=== PATIENT | female | born 1940 ===

== ENCOUNTER 2017-11-26 01:54 | Inpatient (IN) | payer MEDICARE, MEDICAID ==
--- NOTE | 2017-11-26 03:18 | C.PDOC ---
pt brought in by her son for headache, decreased appetite and diffuse body aches. Has been treting her with OTC medication. Unable to obtain any history from the patient due to her dementia.Patient does not appear to be in acute distress (Danilo Jackson) History Per: Family History/Exam Limitations: clinical condition (dementia) Onset/Duration Of Symptoms: Days Current Symptoms Are (Timing): Still Present Severity: Moderate Pain Scale Rating Of: 4 Quality: Dull, Other (throbbing) Preceeding Symptoms: None Associated Symptoms: denies: Photophobia Recent travel outside of the [place]: No Additional History Per: Family <Danilo Jackson - Last Filed: 11/26/17 06:58> <Ani Bishop - Last Filed: 11/26/17 10:56> Time Seen by Provider: 11/26/17 03:18 Chief Complaint (Nursing): Headache Past Medical History Reviewed: Historical Data, Nursing Documentation, Vital Signs - Medical History PMH: Alzheimer's Disease Denies: Chronic Kidney Disease Family History: States: No Known Family Hx - Social History Hx Alcohol Use: No Hx Substance Use: No - Immunization History Hx Tetanus Toxoid Vaccination: No Hx Influenza Vaccination: No Hx Pneumococcal Vaccination: No <Danilo Jackson - Last Filed: 11/26/17 06:58> Vital Signs: Last Vital Signs Temp 97.8 F 11/26/17 07:49 Pulse 85 11/26/17 07:49 Resp 20 11/26/17 07:49 BP 137/70 11/26/17 07:49 Pulse Ox 99 11/26/17 07:49 Review Of Systems Review Of Systems: ROS cannot be obtained secondary to pt's inabilty to answer questions. <Danilo Jackson - Last Filed: 11/26/17 06:58> Physical Exam - Physical Exam Appears: Non-toxic, No Acute Distress Skin: Warm, Dry Head: Normacephalic Eye(s): bilateral: Normal Inspection Oral Mucosa: Moist Neck: Supple Chest: Symmetrical Cardiovascular: Rhythm Regular Respiratory: No Rales, Rhonchi (bases), No Wheezing Gastrointestinal/Abdominal: Soft, No Tenderness, No Distention Back: Normal Inspection Extremity: Normal ROM Extremity: Bilateral: Atraumatic Pulses: Left Dorsalis Pedis: Normal, Right Dorsalis Pedis: Normal Neurological/Psych: Other (aaox1) Gait: With Assistance <KiarraEileen gordonperla - Last Filed: 11/26/17 06:58> ED Course And Treatment - Laboratory Results Result Diagrams: 11/26/17 03:56 11/26/17 04:10 O2 Sat by Pulse Oximetry: 98 Pulse Ox Interpretation: Normal - CT Scan/US Head CT Other Rad Studies (CT/US): Interpreted By Me, Read By Radiologist CT/US Interpretation: EXAM: CT Head Without Intravenous Contrast. CLINICAL HISTORY: 77 years old, female; Pain; Headache; Additional info: R/O bleed. TECHNIQUE: Axial computed tomography images of the head/brain without intravenous contrast. All CT scans at. this facility use one or more dose reduction techniques, viz.: automated exposure control; ma/kV. adjustment per patient size (including targeted exams where dose is matched to indication; i.e. head);. or iterative reconstruction technique. Coronal and sagittal reformatted images were created and reviewed. COMPARISON: No relevant prior studies available. FINDINGS: Brain: Putu-ls-eegagajv atrophy. No intracranial hemorrhage. No mass. No edema. Ventricles: No hydrocephalus. Bones/joints: No acute fracture. Soft tissues: Unremarkable. Vasculature: Mild atherosclerotic disease of intracranial arteries. Sinuses: Moderate to extensive mucosal thickening/fluid of frontal, ethmoid, sphenoid, maxillary. sinuses. Mastoid air cells: No mastoid effusion. Orbits: Unremarkable as visualized. Sella: Enlargement of sella with CSF density. IMPRESSION: 1. No intracranial hemorrhage. 2. Sinus disease. 3. Incidental/non-acute findings are described above. <Danilo Jackson - Last Filed: 11/26/17 06:58> - Laboratory Results Result Diagrams: 11/26/17 03:56 11/26/17 04:10 Lab Interpretation: Abnormal (WBC 21.1 with 15 bands, 92 segs, K+ 2.8, Urine WBC 21) Pulse Ox Interpretation: Normal - Radiology CXR: Viewed By Me CXR Interpretation: Yes: No Acute Disease Reevaluation Time: 10:53 Reassessment Condition: Improved (Patient appears comfortable, Lungs clear, heart sounds normal, abdomen soft and nontender) - Physician Consult Information Physician Contacted: Alexandra Piper Outcome Of Conversation: She will accept patient on her service for IV antibiotics for possible sepsis. <Ani Bishop - Last Filed: 11/26/17 10:56> Disposition Counseled Patient/Family Regarding: Studies Performed, Diagnosis - Disposition Disposition Time: 03:18 <Danilo Jackson - Last Filed: 11/26/17 06:58> - Disposition Disposition Time: 10:55 - POA Present On Arrival: None <Ani Bishop - Last Filed: 11/26/17 10:56> - Disposition Disposition: HOSPITALIZED Condition: STABLE - Clinical Impression Clinical Impression: UTI (urinary tract infection), Alzheimer disease
[2017-11-26 03:59] LABS: BASO % 0.2 % (0.0-2.0); EOS % 0.1 % (0.0-4.0); HEMOGLOBIN 14.1 g/dL (11.0-16.0); LYMPH # 1.1 K/uL (1.0-4.3); LYMPH % 5.1 % (20.0-40.0); MEAN CELL VOLUME 83.4 fL (81.0-99.0); MEAN CORPUSCULAR HEMOGLOBIN 28.2 pg (27.0-31.0); MEAN CORPUSCULAR HGB CONC 33.9 g/dL (33.0-37.0); MEAN PLATELET VOLUME 10.9 fL (7.2-11.7); MONO # 0.4 K/uL (0.0-0.8); MONO % 2.1 % (0.0-10.0); NEUT # 19.5 K/uL (1.8-7.0); NEUT % 92.5 % (50.0-75.0); PLATELET COUNT 177 K/uL (130-400); RBC 4.98 Mil/uL (3.80-5.20); RED CELL DISTRIBUTION WIDTH 12.9 % (11.5-14.5); WHITE BLOOD COUNT 21.1 K/uL (4.8-10.8)
[2017-11-26 04:24] LABS: INR 1.1; PROTHROMBIN TIME 12.3 SECONDS (9.7-12.2)
[2017-11-26 04:28] LABS: ALB/GLOB RATIO 1.4 (1.0-2.1); ALBUMIN 4.2 g/dL (3.5-5.0); ALT/SGPT 28 U/L (9-52); AST/SGOT 31 U/L (14-36); BLOOD UREA NITROGEN 12 mg/dL (7-17); CALCIUM 9.4 mg/dl (8.6-10.4); GFR AFRICAN-AMERICAN > 60; GFR NON-AFRICAN AMERICAN > 60; MAGNESIUM 1.6 mg/dL (1.6-2.3)
[2017-11-26 04:41] LABS: VENOUS BLOOD GAS BASE EXCESS -1.5 mmol/L (0.0-2.0); VENOUS BLOOD GAS PCO2 41 mmHg (40-60); VENOUS BLOOD GAS PO2 24 mm/Hg (30-55); VENOUS BLOOD PH 7.37 (7.32-7.43)
[2017-11-26] MEDS ORDERED: Piperacillin/Tazobact 3.375 gm 100 ML IVPB STA (04:54)
[2017-11-26] MEDS ORDERED: Piperacill/Tazo 3.375gm in Dex 3.375 GM/50 ML BAG IVPB STA (04:57)
[2017-11-26 05:13] LABS: BANDS 15 % (0-2); LYMPHOCYTE 6 % (20-40); METAMYELOCYTE 2 % (0-0); MONOCYTE 3 % (0-10); NEUTROPHIL 74 % (50-75); PLATELET ESTIMATE NORMAL (NORMAL); TOTAL CELLS COUNTED 100
--- NOTE | 2017-11-26 05:25 | CT ---
EXAM: CT Head Without Intravenous Contrast CLINICAL HISTORY: 77 years old, female; Pain; Headache; Additional info: R/O bleed TECHNIQUE: Axial computed tomography images of the head/brain without intravenous contrast. All CT scans at this facility use one or more dose reduction techniques, viz.: automated exposure control; ma/kV adjustment per patient size (including targeted exams where dose is matched to indication; i.e. head); or iterative reconstruction technique. Coronal and sagittal reformatted images were created and reviewed. COMPARISON: No relevant prior studies available. FINDINGS: Brain: Yppo-jf-dyonsjzo atrophy. No intracranial hemorrhage. No mass. No edema. Ventricles: No hydrocephalus. Bones/joints: No acute fracture. Soft tissues: Unremarkable. Vasculature: Mild atherosclerotic disease of intracranial arteries. Sinuses: Moderate to extensive mucosal thickening/fluid of frontal, ethmoid, sphenoid, maxillary sinuses. Mastoid air cells: No mastoid effusion. Orbits: Unremarkable as visualized. Sella: Enlargement of sella with CSF density. IMPRESSION: 1. No intracranial hemorrhage. 2. Sinus disease. 3. Incidental/non-acute findings are described above.
[2017-11-26] MEDS ORDERED: Vancomycin 1 gm/NS 200 ml 1 GM/200 ML BAG IVPB STA (05:51)
[2017-11-26] MEDS ORDERED: Potassium Chloride 20 mEq ER Tab PO STA (09:11)
[2017-11-26] MEDS ORDERED: Sodium Chloride 0.9% 1,000 ML IV ONE (09:11)
[2017-11-26] MEDS ORDERED: Potassium Chloride 20 mEq ER Tab PO ONE ×2 (09:17→09:24)
[2017-11-26] MEDS ORDERED: Sodium Chloride 0.9% 1,000 ML ONE (10:05)
[2017-11-26 10:34] LABS: URINE BILIRUBIN NEGATIVE (NEGATIVE); URINE BLOOD NEGATIVE (NEGATIVE); URINE CLARITY Clear (Clear); URINE COLOR Yellow (YELLOW); URINE GLUCOSE (UA) NORMAL (Normal); URINE LEUKOCYTE ESTERASE 1+ Leu/uL (Negative); URINE NITRATE NEGATIVE (NEGATIVE); URINE PROTEIN 1+ mg/dL (NEGATIVE); URINE UROBILINOGEN NORMAL mg/dL (0.2-1.0)
[2017-11-26 11:08] LABS: BASO # 0.1 K/uL (0.0-0.2); BASO % 0.3 % (0.0-2.0); LYMPH # 0.9 K/uL (1.0-4.3); LYMPH % 4.2 % (20.0-40.0); MEAN CELL VOLUME 83.4 fL (81.0-99.0); MEAN CORPUSCULAR HEMOGLOBIN 27.7 pg (27.0-31.0); MEAN CORPUSCULAR HGB CONC 33.2 g/dL (33.0-37.0); MEAN PLATELET VOLUME 9.5 fL (7.2-11.7); MONO # 1.2 K/uL (0.0-0.8); MONO % 5.7 % (0.0-10.0); NEUT # 19.1 K/uL (1.8-7.0); NEUT % 89.8 % (50.0-75.0); PLATELET COUNT 139 K/uL (130-400); RBC 4.35 Mil/uL (3.80-5.20); RED CELL DISTRIBUTION WIDTH 12.6 % (11.5-14.5); WHITE BLOOD COUNT 21.3 K/uL (4.8-10.8)
--- NOTE | 2017-11-26 11:29 | RAD ---
HISTORY: SOB COMPARISON: None available TECHNIQUE: Chest, one view. FINDINGS: Examination limited by habitus. LUNGS: No focal consolidation. Please note that chest x-ray has limited sensitivity for the detection of pulmonary masses. PLEURA: No significant pleural effusion identified. No definite pneumothorax . CARDIOVASCULAR: Heart size appears within normal limits. Atherosclerotic calcifications of the aortic knob. OSSEOUS STRUCTURES: Degenerative changes. VISUALIZED UPPER ABDOMEN: Unremarkable. OTHER FINDINGS: None. IMPRESSION: No acute findings identified. See above.
[2017-11-26 11:36] LABS: BANDS 10 % (0-2); LYMPHOCYTE 7 % (20-40); MONOCYTE 7 % (0-10); NEUTROPHIL 76 % (50-75); TOTAL CELLS COUNTED 100
[2017-11-26 11:37] LABS: PLATELET ESTIMATE NORMAL (NORMAL)
--- NOTE | 2017-11-26 21:11 | CP.PCM.PN ---
Subjective - Date & Time of Evaluation Date of Evaluation: 11/26/17 Time of Evaluation: 20:30 - Subjective Subjective: H&P dictated #[id number] Objective - Vital Signs/Intake and Output Vital Signs (last 24 hours): Temp Pulse Resp BP Pulse Ox 98.9 F 95 H 18 124/70 99 11/26/17 18:45 11/26/17 18:45 11/26/17 18:45 11/26/17 18:45 11/26/17 18:45 Intake and Output: 11/26/17 11/27/17 18:59 06:59 Output Total 500 Balance -500 - Medications Medications: Current Medications Acetaminophen (Tylenol 325mg Tab) 650 mg PO Q6 PRN PRN Reason: Headache Last Admin: 11/26/17 21:07 Dose: 650 mg Ceftriaxone Sodium 1 gm/ (Sodium Chloride) 100 mls @ 100 mls/hr IVPB DAILY RAJESH - Labs Labs: 11/26/17 11:05 11/26/17 04:10 PT 12.3 SECONDS (9.7-12.2) H 11/26/17 04:10 INR 1.1 11/26/17 04:10 APTT 30 SECONDS (21-34) 11/26/17 04:10
[2017-11-26 22:15] LABS: BASO % 0.1 % (0.0-2.0); HEMOGLOBIN 11.8 g/dL (11.0-16.0); LYMPH # 0.9 K/uL (1.0-4.3); LYMPH % 4.8 % (20.0-40.0); MEAN CELL VOLUME 83.5 fL (81.0-99.0); MEAN CORPUSCULAR HEMOGLOBIN 27.1 pg (27.0-31.0); MEAN CORPUSCULAR HGB CONC 32.5 g/dL (33.0-37.0); MEAN PLATELET VOLUME 9.5 fL (7.2-11.7); MONO # 0.7 K/uL (0.0-0.8); MONO % 3.7 % (0.0-10.0); NEUT # 17.3 K/uL (1.8-7.0); NEUT % 91.4 % (50.0-75.0); PLATELET COUNT 156 K/uL (130-400); RBC 4.36 Mil/uL (3.80-5.20); RED CELL DISTRIBUTION WIDTH 13.5 % (11.5-14.5); WHITE BLOOD COUNT 18.9 K/uL (4.8-10.8)
[2017-11-26 22:29] LABS: ALB/GLOB RATIO 1.2 (1.0-2.1); ALT/SGPT 32 U/L (9-52); AST/SGOT 25 U/L (14-36); BLOOD UREA NITROGEN 13 mg/dL (7-17); CALCIUM 9.1 mg/dl (8.6-10.4); GFR AFRICAN-AMERICAN > 60; GFR NON-AFRICAN AMERICAN > 60
[2017-11-26 23:55] LABS: BANDS 4 % (0-2); LYMPHOCYTE 5 % (20-40); MONOCYTE 3 % (0-10); NEUTROPHIL 88 % (50-75); PLATELET ESTIMATE NORMAL (NORMAL); TOTAL CELLS COUNTED 100
[2017-11-27] MEDS: Sodium Chloride 0.9% 1,000 ML IV SCH ×2 (02:00→08:37)
[2017-11-27 04:48] LABS: BASO % 0.2 % (0.0-2.0); HEMOGLOBIN 11.5 g/dL (11.0-16.0); LYMPH # 1.1 K/uL (1.0-4.3); LYMPH % 6.7 % (20.0-40.0); MEAN CELL VOLUME 84.2 fL (81.0-99.0); MEAN CORPUSCULAR HEMOGLOBIN 27.5 pg (27.0-31.0); MEAN CORPUSCULAR HGB CONC 32.7 g/dL (33.0-37.0); MEAN PLATELET VOLUME 9.9 fL (7.2-11.7); MONO # 0.9 K/uL (0.0-0.8); NEUT % 88.1 % (50.0-75.0); PLATELET COUNT 152 K/uL (130-400); RBC 4.16 Mil/uL (3.80-5.20); RED CELL DISTRIBUTION WIDTH 13.4 % (11.5-14.5)
[2017-11-27 05:02] LABS: ALB/GLOB RATIO 1.1 (1.0-2.1); ALBUMIN 3.8 g/dL (3.5-5.0); ALT/SGPT 30 U/L (9-52); AST/SGOT 23 U/L (14-36); BLOOD UREA NITROGEN 16 mg/dL (7-17); CALCIUM 8.9 mg/dl (8.6-10.4); GFR AFRICAN-AMERICAN > 60; GFR NON-AFRICAN AMERICAN > 60; HDL CHOLESTEROL 30 mg/dL (30-70)
[2017-11-27 05:11] LABS: LDL CHOLESTEROL 84 mg/dL (0-129)
[2017-11-27 05:41] LABS: LYMPHOCYTE 5 % (20-40); MONOCYTE 3 % (0-10); NEUTROPHIL 92 % (50-75); PLATELET ESTIMATE NORMAL (NORMAL); TOTAL CELLS COUNTED 100
--- NOTE | 2017-11-27 08:36 | HP ---
CHIEF COMPLAINT: Brought in by patient's son with flu-like symptoms for the past 3 to 4 days. HISTORY OF PRESENT ILLNESS: Ms. Carlson is a 77-year-old female with past medical history of Alzheimer's dementia diagnosed only about four months ago, on Namenda, who has been following up with doctors from [place], came into ED, brought by the patient's son with complaints of decreased appetite, cold, cough, headache, feeling dizzy, feeling feverish, cough with dark colored phlegm. For the past three to four days has been using oyiq-fxq-vrwpkac medications, used multiple medications including Tylenol, Mucinex without any significant relief, so patient was brought into the ED. In the emergency room, she was found to be having elevated WBC count, elevated lactate level, and slightly abnormal urine and the patient is being admitted for further management. When I examined, the patient is slightly better. She is complaining of headache without any nausea, vomiting, without any photophobia. Cough is mostly dry, but brings up intermittent phlegm. Denies any chest pain. Denies any shortness of breath. Denies any wheezing. Denies any abdominal pain, diarrhea, or constipation. Denies any other urinary complaints. Denies any leg pain or leg cramps. Denies any other neurologic symptoms. PAST MEDICAL HISTORY: Alzheimer's dementia. FAMILY HISTORY: Nothing contributed to the present illness. PAST SURGICAL HISTORY: Denies any past surgical history. PERSONAL HISTORY: She is . Lives alone. Having 5 children. Worked as a certified nursing assistant instructor. SOCIAL HISTORY: Denies smoking, alcohol, or drug abuse. ALLERGIES: NO KNOWN DRUG ALLERGIES. MEDICATIONS: Namenda 5 mg b.i.d. REVIEW OF SYSTEMS: As described in the history of present illness. All other systems reviewed and was found to be negative. PHYSICAL EXAMINATION GENERAL: Elderly female, lying in bed with no acute distress. VITAL SIGNS: Blood pressure 124/70, pulse 95, respirations 18, temperature 98.9 degrees, O2 saturations 99% on room air. HEENT: Pupils are equal, round, and reactive to light and accommodation. Extraocular muscles are intact. No icterus. No pallor. No oral thrush. Mild pharyngeal congestion. NECK: Supple. No JVD. LUNGS: Bilateral vesicular breath sounds. No wheezing. No rhonchi. CVS: S1, S2 present. Regular. ABDOMEN: Soft. Nontender. Bowel sounds are present. No guarding. No rigidity. No rebound tenderness noted. SPRAY II PAINTER: Alert, awake, oriented x 2. No focal deficits noted. EXTREMITIES: No edema. Palpable peripheral pulses. LABORATORY DATA: WBC 21.1, hemoglobin 14.1, hematocrit 41.5, platelets 177. Bands 15%, PT 12.3, INR 1.1, PTT 30, lactate 4.7. Sodium 137, potassium 2.8, chloride 99, bicarbonate 22, BUN 12, creatinine 0.9, glucose 191. Calcium 9.4, magnesium 1.6, total bilirubin 1.1, AST 31, ALT 28, alkaline phosphatase 57, total protein 7.3, albumin 4.2, globulin 3.1. UA: Specific gravity 1.010, pH 7.0, leukocyte esterase 1+, wbc 21, influenza A and B negative. Chest x-ray negative for any infiltrate. CT head: No intracranial hemorrhage or sinus disease. Moderate extensive mucosal thickening fluid of frontal, ethmoid, sphenoid, and maxillary sinuses. Culture sent from the ED. ASSESSMENT AND PLAN: Elderly female with past medical history of Alzheimer's dementia diagnosed recently, on , following up with , came into the emergency department with 3- to 4-day history of headache, dizziness, cold, cough, fever, not getting better with the [id number] medication. In the emergency department, patient is found to be having elevated white blood cell count with 21 wbc's in the urine and negative chest x-ray and elevated lactate up to 4.7. Patient is being admitted and also found to be having low potassium and patient is being admitted for further management. 1. Abnormal CT head with sinus disease, possibility of acute pansinusitis. Elevated WBC count probably from possible sepsis from sinusitis. Elevated glucose levels. Rule out diabetes mellitus. 2. History of Alzheimer's dementia. 3. Hypokalemia. PLAN: The patient is being admitted to the medical floor. The patient received multiple antibiotics in the ED including Zosyn and vancomycin. I will give Rocephin 1 g IV daily pending all the culture results. We will do CT of the sinuses. I will check hemoglobin A1c level. Give Tylenol for headache. IV fluids. Continue with her home medication. We will obtain ID consult with Dr. Mangia. We will repeat labs in the morning. Discussed with the patient's son at length. Clarified all his questions and concerns. We will add further recommendations as her clinical course progresses. Alexandra Piper MD
[2017-11-27] MEDS ORDERED: Vancomycin 1 GM in Sodium Chloride 0.9% 200 ML IVPB ONE (11:00)
[2017-11-27] MEDS: guaiFENesin DM 200 mg-20 mg/10 ml UD PO PRN (12:03)
--- NOTE | 2017-11-27 14:04 | CP.PCM.PN ---
Subjective - Date & Time of Evaluation Date of Evaluation: 11/27/17 Time of Evaluation: 13:30 - Subjective Subjective: Progress note dictated #[id number] Objective - Vital Signs/Intake and Output Vital Signs (last 24 hours): Temp Pulse Resp BP Pulse Ox 99 F 99 H 20 135/70 97 11/27/17 09:00 11/27/17 09:00 11/27/17 09:00 11/27/17 09:00 11/27/17 09:00 Intake and Output: 11/27/17 11/27/17 06:59 18:59 Intake Total 100 Balance 100 - Medications Medications: Current Medications Acetaminophen (Tylenol 325mg Tab) 650 mg PO Q6 PRN PRN Reason: Headache Last Admin: 11/26/17 21:07 Dose: 650 mg Guaifenesin/Dextromethorphan (Robitussin Dm) 10 ml PO Q6H PRN PRN Reason: Cough and congestion Last Admin: 11/27/17 12:03 Dose: 10 ml Ceftriaxone Sodium 1 gm/ (Sodium Chloride) 100 mls @ 100 mls/hr IVPB DAILY RAJESH Last Admin: 11/27/17 10:09 Dose: 100 mls/hr Sodium Chloride (Sodium Chloride 0.9%) 1,000 mls @ 100 mls/hr IV .Q10H RAJESH Last Admin: 11/27/17 08:37 Dose: Not Given Pneumococcal Polyvalent Vaccine (Pneumovax 23 Vaccine) 0.5 ml IM .ONCE ONE Stop: 11/29/17 10:01 - Labs Labs: 11/27/17 04:45 11/27/17 04:45 PT 12.3 SECONDS (9.7-12.2) H 11/26/17 04:10 INR 1.1 11/26/17 04:10 APTT 30 SECONDS (21-34) 11/26/17 04:10
--- NOTE | 2017-11-27 15:46 | CP.PCM.CON ---
History of Present Illness - History of Present Illness History of Present Illness: 77 YO FEMALE ADMITTED FOR FEVER HEADACHE WEAKNESS AND BODYACHES FLU AG WAS NEGATIVE CULTURES SENT AND ANTIBIOTICS STARTED PMH + DEMENTIA, OA, HTN Review of Systems - Review of Systems All systems: reviewed and no additional remarkable complaints except - Constitutional Constitutional: As Per HPI, Anorexia, Chills, Fever - EENT Eyes: absent: As Per HPI, Blind Spots, Blurred Vision, Change in Vision, Decreased Night Vision, Diplopia, Discharge, Dry Eye, Exophthalmos, Floaters, Irritation, Itchy Eyes, Loss of Peripheral Vision, Pain, Photophobia, Requires Corrective Lenses, Sees Flashes, Spots in Vision, Tunnel Vision, Other Visual Disturbances, Loss of Vision, Other Ears: absent: As Per HPI, Decreased Hearing, Ear Discharge, Ear Pain, Tinnitus, Abnormal Hearing, Disequilibrium, Dizziness, Other Nose/Mouth/Throat: absent: As Per HPI, Epistaxis, Nasal Congestion, Nasal Discharge, Nasal Obstruction, Nasal Trauma, Nose Pain, Post Nasal Drip, Sinus Pain, Sinus Pressure, Bleeding Gums, Change in Voice, Dental Pain, Dry Mouth, Dysphagia, Halitosis, Hoarsness, Lip Swelling, Mouth Lesions, Mouth Pain, Odynophagia, Sore Throat, Throat Swelling, Tongue Swelling, Facial Pain, Neck Pain, Neck Mass, Other - Breasts Breasts: absent: As Per HPI, Change in Shape, Mass, Pain, Nipple Discharge, Nipple Inversion, Skin Changes, Swelling, Other - Cardiovascular Cardiovascular: absent: As Per HPI, Acrocyanosis, Chest Pain, Chest Pain at Rest , Chest Pain with Activity, Claudication, Diaphoresis, Dyspnea, Dyspnea on Exertion, Edema, Irregular Heart Rhythm, Pain Radiating to Arm/Neck/Jaw, Leg Edema, Leg Ulcers, Lightheadedness, Orthopnea, Palpitations, Paroxysmal Nocturnal Dyspnea, Pedal Edema, Radiating Pain, Rapid Heart Rate, Slow Heart Rate, Syncope, Other - Respiratory Respiratory: absent: As Per HPI, Cough, Dyspnea, Hemoptysis, Dyspnea on Exertion , Wheezing, Snoring, Stridor, Pain on Inspiration, Chest Congestion, Excessive Mucous Production, Change in Mucous Color, Pain with Coughing, Other - Gastrointestinal Gastrointestinal: absent: As Per HPI, Abdominal Pain, Belching, Bloating, Change in Bowel Habits, Change in Stool Character, Coffee Ground Emesis, Constipation, Cramping, Diarrhea, Dyspepsia, Dysphagia, Early Satiety, Excessive Flatus, Fecal Incontinence, Heartburn, Hematemesis, Hematochezia, Loose Stools, Melena, Nausea, Odynophagia, Temesmus, Vomiting, Other - Genitourinary Genitourinary: absent: As Per HPI, Change in Urinary Stream, Difficulty Urinating, Dysuria, Flank Pain, Hematuria, Pyuria, Nocturia, Urinary Incontinence, Urinary Frequency, Urinary Hesitance, Urinary Urgency, Voiding Freq/Small Amts, Freq UTI, Hx Renal/Bladder Calculi, Hx /Renal Surgery, Bladder Distension, Other - Reproductive: Female Reproductive:Female: absent: As Per HPI, Amenorrhea, Amenorrhea/ Control, Currently Menstual, Cycle <21 Days, Cycle >35 Days, Cycle Variable, Menses 1-7 Days, Menses >/= 8 Days, Menses Variable, Cycle > 4 Weeks Between, No Menses for 6 Months, Heavy Menses, Light Menses, Normal Menses, Spotting Between Cycles , S/P Hysterectomy, Menopausal, Post Menopausal, Premenarche, Abnormal Vaginal Bleeding, Dysmenorrhea, Dyspareunia, Genital Lesions, Genital Pruritis, Pelvic Pain, Prolapse Symptoms, Sexual Dysfunction, Vaginal Discharge, Vaginal Dryness , Vaginal Odor, Vaginal Pruritis, Other - Menstruation Menstruation: absent: As Per HPI, Amenorrhea, Amenorrhea/ Control, Currently Menstual, Cycle <21 Days, Cycle >35 Days, Cycle Variable, Menses 1-7 Days, Menses >/= 8 Days, Menses Variable, Cycle > 4 Weeks Between, No Menses for 6 Months, Heavy Menses, Light Menses, Normal Menses, Spotting Between Cycles , S/P Hysterectomy, Menopausal, Post Menopausal, Premenarche, Abnormal Vaginal Bleeding, Dysmenorrhea, Other - Musculoskeletal Musculoskeletal: As Per HPI - Integumentary Integumentary: absent: Acne, Alopecia, Bleeding Lesions, Change in Hair, Change in Nails, Change in Pigmentation, Changing Lesions, Dry Skin, Erythema, Furuncle , Hirsutism, Lesions, New Lesions, Non-Healing Lesions, Photosensitivity, Pruritus, Rash, Skin Pain, Skin Ulcer, Sores, Striae, Swelling, Unusual Bruising , Wounds, Jaundice, Other - Neurological Neurological: As Per HPI - Psychiatric Psychiatric: absent: As Per HPI, Abnormal Sleep Pattern, Anhedonia, Anxiety, Auditory Hallucinations, Behavioral Changes, Change in Appetite, Change in Libido, Confusion, Depression, Difficulty Concentrating, Hallucinations, Homicidal Ideation, Hopelessness, Irritability, Memory Loss, Mood Swings, Panic Attacks, Paranoia, Suicidal Ideation, Visual Hallucinations, Tactile Hallucinations, Other - Endocrine Endocrine: absent: As Per HPI, Change in Body Appearance, Change in Libido, Cold Intolorance, Deepening of Voice, Excessive Sweating, Fatigue, Flushing, Heat Intolorance, Increase in Ring/Shoe/Hat Size, Palpitations, Polydipsia, Polyphagia, Polyuria, Other - Hematologic/Lymphatic Hematologic: absent: As Per HPI, Easy Bleeding, Easy Bruising, Lymphadenopathy, Other Past Patient History - Past Medical History & Family History Past Medical History?: Yes - Past Social History Smoking Status: Never Smoked - CARDIAC Hx Cardiac Disorders: No - PULMONARY Hx Respiratory Disorders: No - NEUROLOGICAL Hx Neurological Disorder: Yes Hx Alzheimer's Disease: Yes - HEENT Hx HEENT Problems: No - RENAL Hx Chronic Kidney Disease: No - ENDOCRINE/METABOLIC Hx Endocrine Disorders: No - HEMATOLOGICAL/ONCOLOGICAL Hx Blood Disorders: No - INTEGUMENTARY Hx Dermatological Problems: No - MUSCULOSKELETAL/RHEUMATOLOGICAL Hx Falls: No - GASTROINTESTINAL Hx Gastrointestinal Disorders: No - GENITOURINARY/GYNECOLOGICAL Hx Genitourinary Disorders: No - PSYCHIATRIC Hx Psychophysiologic Disorder: No Hx Substance Use: No - SURGICAL HISTORY Hx Surgeries: No - ANESTHESIA Hx Anesthesia: No Meds Allergies/Adverse Reactions: Allergies Allergy/AdvReac Type Severity Reaction Status Date / Time No Known Allergies Allergy Verified 11/26/17 02:09 - Medications Medications: Current Medications Acetaminophen (Tylenol 325mg Tab) 650 mg PO Q6 PRN PRN Reason: Headache Last Admin: 11/27/17 14:03 Dose: 650 mg Guaifenesin/Dextromethorphan (Robitussin Dm) 10 ml PO Q6H PRN PRN Reason: Cough and congestion Last Admin: 11/27/17 12:03 Dose: 10 ml Ceftriaxone Sodium 1 gm/ (Sodium Chloride) 100 mls @ 100 mls/hr IVPB DAILY RAJESH Last Admin: 11/27/17 10:09 Dose: 100 mls/hr Sodium Chloride (Sodium Chloride 0.9%) 1,000 mls @ 100 mls/hr IV .Q10H RAJESH Last Admin: 11/27/17 08:37 Dose: Not Given Pneumococcal Polyvalent Vaccine (Pneumovax 23 Vaccine) 0.5 ml IM .ONCE ONE Stop: 11/29/17 10:01 Physical Exam - Constitutional Appears: Non-toxic, Confused, Cachectic, Chronically Ill - Head Exam Head Exam: NORMOCEPHALIC - Eye Exam Eye Exam: PERRL. absent: Scleral icterus - ENT Exam ENT Exam: Mucous Membranes Dry, Normal External Ear Exam - Neck Exam Neck exam: Negative for: Lymphadenopathy - Respiratory Exam Respiratory Exam: Decreased Breath Sounds, Rhonchi - Cardiovascular Exam Cardiovascular Exam: REGULAR RHYTHM, +S1, +S2 - GI/Abdominal Exam GI & Abdominal Exam: Diminished Bowel Sounds, Soft. absent: Tenderness - Rectal Exam Rectal Exam: Deferred - Exam Exam: NORMAL INSPECTION - Extremities Exam Extremities exam: Negative for: calf tenderness, pedal edema - Back Exam Back exam: absent: CVA tenderness (L), CVA tenderness (R) - Neurological Exam Neurological exam: Alert, Altered, CN II-XII Intact - Psychiatric Exam Psychiatric exam: Depressed - Skin Skin Exam: Dry Results - Vital Signs Recent Vital Signs: Last Vital Signs Temp 99 F 11/27/17 09:00 Pulse 99 H 11/27/17 09:00 Resp 20 11/27/17 09:00 BP 135/70 11/27/17 09:00 Pulse Ox 97 11/27/17 09:00 - Labs Result Diagrams: 11/27/17 04:45 11/27/17 04:45 Labs: Laboratory Results - last 24 hr 11/26/17 11/26/17 11/27/17 22:12 22:12 04:45 WBC 18.9 H RBC 4.36 Hgb 11.8 Hct 36.4 MCV 83.5 MCH 27.1 MCHC 32.5 L RDW 13.5 Plt Count 156 MPV 9.5 Neut % (Auto) 91.4 H Lymph % (Auto) 4.8 L Irion % (Auto) 3.7 Eos % (Auto) 0.0 Baso % (Auto) 0.1 Neut # (Auto) 17.3 H Lymph # (Auto) 0.9 L Irion # (Auto) 0.7 Eos # (Auto) 0.0 Baso # (Auto) 0.0 Neutrophils % (Manual) 88 H Band Neutrophils % 4 H Lymphocytes % (Manual) 5 L Monocytes % (Manual) 3 Platelet Estimate Normal Sodium 143 143 Potassium 4.4 4.3 Chloride 106 106 Carbon Dioxide 25 25 Anion Gap 17 17 BUN 13 16 Creatinine 0.7 0.9 Est GFR ( Amer) > 60 > 60 Est GFR (Non-Af Amer) > 60 > 60 POC Glucose (mg/dL) Random Glucose 167 H 155 H Hemoglobin A1c Lactic Acid Calcium 9.1 8.9 Magnesium 2.0 Total Bilirubin 0.8 0.7 AST 25 23 ALT 32 30 Alkaline Phosphatase 40 40 Total Protein 7.4 7.3 Albumin 4.0 3.8 Globulin 3.4 3.4 Albumin/Globulin Ratio 1.2 1.1 Triglycerides 133 Cholesterol 153 LDL Cholesterol Direct 84 HDL Cholesterol 30 TSH 3rd Generation 1.48 11/27/17 11/27/17 11/27/17 04:45 04:45 04:45 WBC 17.0 H RBC 4.16 Hgb 11.5 Hct 35.0 MCV 84.2 MCH 27.5 MCHC 32.7 L RDW 13.4 Plt Count 152 MPV 9.9 Neut % (Auto) 88.1 H Lymph % (Auto) 6.7 L Irion % (Auto) 5.0 Eos % (Auto) 0.0 Baso % (Auto) 0.2 Neut # (Auto) 15.0 H Lymph # (Auto) 1.1 Irion # (Auto) 0.9 H Eos # (Auto) 0.0 Baso # (Auto) 0.0 Neutrophils % (Manual) 92 H Band Neutrophils % Lymphocytes % (Manual) 5 L Monocytes % (Manual) 3 Platelet Estimate Normal Sodium Potassium Chloride Carbon Dioxide Anion Gap BUN Creatinine Est GFR ( Amer) Est GFR (Non-Af Amer) POC Glucose (mg/dL) Random Glucose Hemoglobin A1c 6.1 Lactic Acid 2.1 Calcium Magnesium Total Bilirubin AST ALT Alkaline Phosphatase Total Protein Albumin Globulin Albumin/Globulin Ratio Triglycerides Cholesterol LDL Cholesterol Direct HDL Cholesterol TSH 3rd Generation 11/27/17 11/27/17 06:56 11:40 WBC RBC Hgb Hct MCV MCH MCHC RDW Plt Count MPV Neut % (Auto) Lymph % (Auto) Irion % (Auto) Eos % (Auto) Baso % (Auto) Neut # (Auto) Lymph # (Auto) Irion # (Auto) Eos # (Auto) Baso # (Auto) Neutrophils % (Manual) Band Neutrophils % Lymphocytes % (Manual) Monocytes % (Manual) Platelet Estimate Sodium Potassium Chloride Carbon Dioxide Anion Gap BUN Creatinine Est GFR ( Amer) Est GFR (Non-Af Amer) POC Glucose (mg/dL) 122 H 304 H Random Glucose Hemoglobin A1c Lactic Acid Calcium Magnesium Total Bilirubin AST ALT Alkaline Phosphatase Total Protein Albumin Globulin Albumin/Globulin Ratio Triglycerides Cholesterol LDL Cholesterol Direct HDL Cholesterol TSH 3rd Generation Assessment & Plan (1) Alzheimer disease Status: Acute (2) UTI (urinary tract infection) Status: Acute - Assessment and Plan (Free Text) Assessment: CONT RX FOR UTI R/O SEPSIS IV RX IN PROGRESS Plan: RECC : RENAL EVTOSHIA SAUCEDA
--- NOTE | 2017-11-27 15:50 | CP.PCM.PN ---
Subjective - Date & Time of Evaluation Date of Evaluation: 11/27/17 Time of Evaluation: 10:00 - Subjective Subjective: CT HEAD SHOWS ? PANSINUSITIS RX IN PROGRESS DR CORNELIA URBAN Objective - Vital Signs/Intake and Output Vital Signs (last 24 hours): Temp Pulse Resp BP Pulse Ox 99 F 99 H 20 135/70 97 11/27/17 09:00 11/27/17 09:00 11/27/17 09:00 11/27/17 09:00 11/27/17 09:00 Intake and Output: 11/27/17 11/27/17 06:59 18:59 Intake Total 100 300 Balance 100 300 - Medications Medications: Current Medications Acetaminophen (Tylenol 325mg Tab) 650 mg PO Q6 PRN PRN Reason: Headache Last Admin: 11/27/17 14:03 Dose: 650 mg Guaifenesin/Dextromethorphan (Robitussin Dm) 10 ml PO Q6H PRN PRN Reason: Cough and congestion Last Admin: 11/27/17 12:03 Dose: 10 ml Ceftriaxone Sodium 1 gm/ (Sodium Chloride) 100 mls @ 100 mls/hr IVPB DAILY RAJESH Last Admin: 11/27/17 10:09 Dose: 100 mls/hr Sodium Chloride (Sodium Chloride 0.9%) 1,000 mls @ 100 mls/hr IV .Q10H RAJESH Last Admin: 11/27/17 08:37 Dose: Not Given Pneumococcal Polyvalent Vaccine (Pneumovax 23 Vaccine) 0.5 ml IM .ONCE ONE Stop: 11/29/17 10:01 - Labs Labs: 11/27/17 04:45 11/27/17 04:45 PT 12.3 SECONDS (9.7-12.2) H 11/26/17 04:10 INR 1.1 11/26/17 04:10 APTT 30 SECONDS (21-34) 11/26/17 04:10 Assessment and Plan (1) Alzheimer disease Status: Acute (2) UTI (urinary tract infection) Status: Acute
[2017-11-27] MEDS: Piperacillin/Tazobact 3.375 GM in Sodium Chloride 100 ML IVPB SCH (18:44)
--- NOTE | 2017-11-27 21:32 | PN ---
DATE: 11/27/2017. SUBJECTIVE: The patient was seen and examined at bedside. The patient was still complaining of headache. Denies any dizziness, getting confused at times which is her baseline. Denies any other new complaints. All other systems reviewed and were found to be negative. PHYSICAL EXAMINATION: GENERAL: Elderly female, lying in bed, in no acute distress. VITAL SIGNS: Blood pressure 135/70, pulse 99, respirations 20, temperature 99 degrees Fahrenheit, O2 sat 97% on room air. HEENT: Pupils equal, round, reacting to light and accommodation. Extraocular muscles are intact. No icterus. No pallor. NECK: Supple. No JVD. LUNGS: Bilateral vesicular breath sounds. No wheezing. No rhonchi. CVS: S1, S2 present. Regular. ABDOMEN: Soft. Nontender. Bowel sounds present. No guarding. No rigidity. No rebound tenderness noted. REHABILITATION TEACHER: Alert, awake, and oriented x1-2. No focal deficits noted. EXTREMITIES: No edema. MEDICATIONS: Include Tylenol as needed, Robitussin DM as needed, Zosyn 3.375 mg IV q. 8 hours, IV fluids, normal saline at 100 mL an hour. LABORATORY DATA: Labs done from ED; WBC 17, hemoglobin 11.5, hematocrit 35, platelets 152. Sodium 143, potassium 4.3, chloride 106, bicarb 25, BUN 17, creatinine 0.9, glucose 122, hemoglobin A1c 6.1, lactate 2.1, calcium 8.9, other LFTs within normal limits. Triglyceride 133, cholesterol 153, LDL 84. HDL 30, TSH 1.48. CT of the sinuses preliminary report consistent with pansinusitis with questionable bony erosion, cannot rule out orbital involvement. One set of blood cultures showing gram positive cocci in pairs. ASSESSMENT AND PLAN: Elderly female with history of Alzheimer's dementia, admitted for elevated WBC count and hypokalemia found to be having pansinusitis with possible orbital involvement and gram positive sepsis and possible urinary tract infection. Patient 's antibiotics switched to Zosyn by Dr. Joe. Patient received 1 dose of vancomycin. We will repeat blood cultures in a.m. with identification of the organism. Her lactate improved. Hypokalemia corrected. We will obtain MRI of the sinuses with gadolinium and we will obtain ENT evaluation with . We will add further recommendation as her clinical course progresses. Alexandra Piper MD [facility] # [id number]
[2017-11-28] MEDS: Piperacillin/Tazobact 3.375 GM in Sodium Chloride 100 ML IVPB SCH ×3 (00:17→18:14)
[2017-11-28] MEDS: guaiFENesin DM 200 mg-20 mg/10 ml UD PO PRN ×2 (02:04→12:47)
[2017-11-28] MEDS: Sodium Chloride 0.9% 1,000 ML IV SCH ×2 (08:10→14:10)
[2017-11-28 08:11] LABS: HEPATITIS B SURFACE AG Negative (NEGATIVE)
[2017-11-28 08:17] LABS: HEPATITIS A IGM NEGATIVE (NEGATIVE); HEPATITIS B CORE AB NEGATIVE (NEGATIVE)
[2017-11-28 08:28] LABS: HEPATITIS C ANTIBODY NEGATIVE (NEGATIVE)
[2017-11-28] MEDS: Enoxaparin 30 mg Syringe SC SCH ×2 (09:41→21:42)
--- NOTE | 2017-11-28 11:08 | CP.PCM.PN ---
Subjective - Date & Time of Evaluation Date of Evaluation: 11/28/17 Time of Evaluation: 11:10 - Subjective Subjective: Progress note dictated #[id number] Objective - Vital Signs/Intake and Output Vital Signs (last 24 hours): Temp Pulse Resp BP Pulse Ox 98.0 F 78 20 157/76 H 97 11/28/17 08:18 11/28/17 09:44 11/28/17 08:18 11/28/17 09:44 11/28/17 08:18 Intake and Output: 11/28/17 11/28/17 06:59 18:59 Intake Total 920 Balance 920 - Medications Medications: Current Medications Acetaminophen (Tylenol 325mg Tab) 650 mg PO Q6 PRN PRN Reason: Headache Last Admin: 11/28/17 08:08 Dose: 650 mg Enoxaparin Sodium (Lovenox) 30 mg SC 1000,2200 RAJESH Last Admin: 11/28/17 09:41 Dose: 30 mg Guaifenesin/Dextromethorphan (Robitussin Dm) 10 ml PO Q6H PRN PRN Reason: Cough and congestion Last Admin: 11/28/17 02:04 Dose: 10 ml Sodium Chloride (Sodium Chloride 0.9%) 1,000 mls @ 100 mls/hr IV .Q10H RAJESH Last Admin: 11/28/17 08:10 Dose: 100 mls/hr Piperacillin Sod/Tazobactam (Sod 3.375 gm/ Sodium Chloride) 100 mls @ 200 mls/ hr IVPB Q8H [facility] Last Admin: 11/28/17 08:09 Dose: 200 mls/hr Pneumococcal Polyvalent Vaccine (Pneumovax 23 Vaccine) 0.5 ml IM .ONCE ONE Stop: 11/29/17 10:01 - Labs Labs: 11/27/17 04:45 11/27/17 04:45 PT 12.3 SECONDS (9.7-12.2) H 11/26/17 04:10 INR 1.1 11/26/17 04:10 APTT 30 SECONDS (21-34) 11/26/17 04:10
--- NOTE | 2017-11-28 14:12 | CT ---
CT sinuses History: Sinusitis. Comparison: None available. Technique: Multiple contiguous axial images were performed through the paranasal sinuses without the use of intravenous contrast. Subsequently, sagittal and coronal reformatted images were obtained. This CT exam was performed using one or more of the following dose reduction techniques: Automated exposure control, adjustment of the mA and/or kV according to patient size, and/or use of iterative reconstruction technique. Findings: Mild mucosal thickening of the bilateral maxillary sinuses with moderate fluid on the right and a large amount fluid on left. Near complete opacification of the frontal, ethmoid, and sphenoid sinuses. Thinning of the laminae papyracae. Lucent 1.2 x 0.6 centimeter osteolytic lesion in the right frontal bone best demonstrated on series 2, image 75, just superior to the right orbit. This is of uncertain clinical etiology. The margins demonstrates some lobulated scalloped borders. Clinical correlation. Enlarged sella with a fluid density. Obstruction of both ostiomeatal complexes. Suggestion of trace fluid in the right and left medial orbits between the lamina papyracea and medial rectus muscles. Nasal septal deviation. Moderate mucosal thickening and hypertrophy of the middle and inferior nasal turbinates. Impression: 1. Severe pansinusitis. Thinning of the lamina papyracea with trace fluid in the medial orbits bilaterally concerning for bony erosion and orbital extension of fluid. Clinical correlation and or correlation with ENT consultation may be helpful if clinically indicated. 2. Lytic lesions in the right frontal bone as described above. 3. Empty sella. Correlation with MRI may be helpful if clinically indicated. These findings were preliminarily reported at 2 p.m. on 11/27/[address] Natalee Glez from [employer].
--- NOTE | 2017-11-28 22:49 | PN ---
DATE: 11/28/2017 SUBJECTIVE: The patient is seen and examined at bedside. The patient is still complaining of headache. Denies any fever. Denies any other chest pain, shortness of breath, or wheezing. All of the systems reviewed and were found to be negative. PHYSICAL EXAMINATION: GENERAL: Elderly female, lying in bed, in no acute distress. VITAL SIGNS: Blood pressure 154/81, pulse 88, respirations 20, temperature 98.3 degrees Fahrenheit, O2 sat 97% on room air. HEENT: Pupils equal, round, and reacting to light and accommodation. Extraocular muscles are intact. No icterus. No pallor. No oral thrush. No pharyngeal congestion. NECK: Supple. No JVD. LUNGS: Bilateral vesicular breath sounds. No wheezing. No rhonchi. CVS: S1 and S2 present. Regular. ABDOMEN: Soft. Nontender. Bowel sounds are present. No guarding. No rigidity. No rebound tenderness noted. GAS PROVER: Alert, awake, oriented x2. No focal deficits noted. EXTREMITIES: No edema. MEDICATIONS: Include Tylenol as needed, Lovenox 30 mg subcu, Robitussin DM, Motrin 400 mg every 8 hours, , Zosyn 3.375 gm q.8 hours, normal saline 100 mL an hour. LABORATORY DATA: Labs from today glucose 87,118, 86, 182, 94. HIV negative, hepatitis serology negative. Blood cultures, identification, and sensitivity pending. ASSESSMENT AND PLAN: Elderly female with history of dementia, admitted for pansinusitis, headache, sepsis, Gram positive bacteremia. Patient underwent MRI of the orbits, results pending. We will continue with Zosyn as per ID recommendation. Discussed with Dr. Yo, ENT. We will follow up with MRI results. We will repeat labs in the morning. Alexandra Piper MD
--- NOTE | 2017-11-28 23:11 | CON ---
DATE: 11/26/2017 REASON FOR CONSULTATION: Sinusitis. REQUESTING PHYSICIAN: Dr. Piper. HISTORY OF PRESENT ILLNESS: This is a 77-year-old female, who for the past three days has been experiencing some nasal drainage bilaterally, constant, [id number] in intensity. There is no headache. There is no nasal congestion. CAT scan of the head revealed sinusitis. PHYSICAL EXAMINATION: HEAD: Atraumatic and normocephalic. FACE: Good facial movements bilaterally. CONSTITUTIONAL: Well fed, well nourished. COMMUNICATION: Communicates well and appropriately. EXTERNAL NOSE AND EARS: No masses. No lesions. No erythema. No edema. INTERNAL NOSE AND EARS: Deviated septum. Possible erythema and edema of the mucosa. No masses. No lesions. ORAL CAVITY AND OROPHARYNX: No masses. No lesions. No erythema. No edema. LIPS AND GUMS: No masses, no lesions, no erythema, no edema. NECK: Supple. THYROID: No thyromegaly. No goiter. LYMPH NODES: No lymphadenopathy of the neck. ASSESSMENT: 1. Sinusitis. 2. Deviated septum. PLAN: We will follow up MRI. Radiologist read the CT sinus that was done as possible intraorbital extension, I cannot access the myself at this point since the system is down and the MRI has not been done. However, the patient does not have any vision problems, extraocular movements are intact, there is some edema around the periorbital on either side. We will follow up MRI. Fredi Yo MD
[2017-11-29] MEDS: Piperacillin/Tazobact 3.375 GM in Sodium Chloride 100 ML IVPB SCH ×3 (00:25→16:55)
[2017-11-29 07:40] LABS: BASO # 0.1 K/uL (0.0-0.2); BASO % 0.5 % (0.0-2.0); EOS % 0.4 % (0.0-4.0); LYMPH # 2.2 K/uL (1.0-4.3); LYMPH % 18.8 % (20.0-40.0); MEAN CELL VOLUME 83.6 fL (81.0-99.0); MEAN CORPUSCULAR HEMOGLOBIN 27.7 pg (27.0-31.0); MEAN CORPUSCULAR HGB CONC 33.1 g/dL (33.0-37.0); MEAN PLATELET VOLUME 9.8 fL (7.2-11.7); MONO # 0.8 K/uL (0.0-0.8); MONO % 6.3 % (0.0-10.0); NEUT # 8.8 K/uL (1.8-7.0); RBC 4.34 Mil/uL (3.80-5.20); WHITE BLOOD COUNT 11.9 K/uL (4.8-10.8)
--- NOTE | 2017-11-29 08:47 | CP.PCM.PN ---
Subjective - Date & Time of Evaluation Date of Evaluation: 11/29/17 Time of Evaluation: 08:43 - Subjective Subjective: decreased facial pain. It is mild now, constant and bilateral. No nasal congestion, no nasal d/c head: atraumatic face: good movements const: well fed Com: communicates well external nose and ears: no masses, no lesions neck: supple nose: deviated septum, possible mild edema oc/op: no masses, no lesion, no erythema, no edema lips/gums: no masses, no lesions, no erythema, no edema thyroid: no goiter lymph: no lad aao X3 a/p: sinusitis deviated septum headaches f/u MRI Objective - Vital Signs/Intake and Output Vital Signs (last 24 hours): Temp Pulse Resp BP Pulse Ox 98.5 F 72 20 163/75 H 98 11/29/17 08:10 11/29/17 08:10 11/29/17 08:10 11/29/17 08:10 11/29/17 08:10 - Medications Medications: Current Medications Acetaminophen (Tylenol 325mg Tab) 650 mg PO Q6 PRN PRN Reason: Headache Last Admin: 11/29/17 04:59 Dose: 650 mg Enoxaparin Sodium (Lovenox) 30 mg SC 1000,2200 [facility] Last Admin: 11/28/17 21:42 Dose: 30 mg Guaifenesin/Dextromethorphan (Robitussin Dm) 10 ml PO Q6H PRN PRN Reason: Cough and congestion Last Admin: 11/28/17 12:47 Dose: 10 ml Sodium Chloride (Sodium Chloride 0.9%) 1,000 mls @ 100 mls/hr IV .Q10H [facility] Last Admin: 11/28/17 14:10 Dose: Not Given Piperacillin Sod/Tazobactam (Sod 3.375 gm/ Sodium Chloride) 100 mls @ 200 mls/ hr IVPB Q8H [facility] Last Admin: 11/29/17 08:17 Dose: 200 mls/hr Ibuprofen (Motrin Tab) 400 mg PO Q8 PRN PRN Reason: Pain, moderate (4-7) Lorazepam (Ativan) 0.5 mg IVP ONCE PRN PRN Reason: Anxiety Last Admin: 11/28/17 14:25 Dose: 0.5 mg Pneumococcal Polyvalent Vaccine (Pneumovax 23 Vaccine) 0.5 ml IM .ONCE ONE Stop: 11/29/17 10:01 - Labs Labs: 11/29/17 07:32 11/27/17 04:45 PT 12.3 SECONDS (9.7-12.2) H 11/26/17 04:10 INR 1.1 11/26/17 04:10 APTT 30 SECONDS (21-34) 11/26/17 04:10
[2017-11-29] MEDS: Sodium Chloride 0.9% 1,000 ML IV SCH ×2 (09:42→18:55)
[2017-11-29] MEDS: Enoxaparin 30 mg Syringe SC SCH ×2 (09:43→21:18)
--- NOTE | 2017-11-29 09:45 | CP.PCM.PN ---
Subjective - Date & Time of Evaluation Date of Evaluation: 11/29/17 Time of Evaluation: 09:45 - Subjective Subjective: Progress note dictated #[id number] Objective - Vital Signs/Intake and Output Vital Signs (last 24 hours): Temp Pulse Resp BP Pulse Ox 98.5 F 72 20 163/75 H 98 11/29/17 08:10 11/29/17 08:10 11/29/17 08:10 11/29/17 08:10 11/29/17 08:10 - Medications Medications: Current Medications Acetaminophen (Tylenol 325mg Tab) 650 mg PO Q6 PRN PRN Reason: Headache Last Admin: 11/29/17 04:59 Dose: 650 mg Amlodipine Besylate (Norvasc) 2.5 mg PO DAILY [facility] Enoxaparin Sodium (Lovenox) 30 mg SC 1000,2200 [facility] Last Admin: 11/29/17 09:43 Dose: 30 mg Guaifenesin/Dextromethorphan (Robitussin Dm) 10 ml PO Q6H PRN PRN Reason: Cough and congestion Last Admin: 11/28/17 12:47 Dose: 10 ml Sodium Chloride (Sodium Chloride 0.9%) 1,000 mls @ 100 mls/hr IV .Q10H [facility] Last Admin: 11/29/17 09:42 Dose: Not Given Piperacillin Sod/Tazobactam (Sod 3.375 gm/ Sodium Chloride) 100 mls @ 200 mls/ hr IVPB Q8H [facility] Last Admin: 11/29/17 08:17 Dose: 200 mls/hr Ibuprofen (Motrin Tab) 400 mg PO Q8 PRN PRN Reason: Pain, moderate (4-7) Lorazepam (Ativan) 0.5 mg IVP ONCE PRN PRN Reason: Anxiety Last Admin: 11/28/17 14:25 Dose: 0.5 mg Pneumococcal Polyvalent Vaccine (Pneumovax 23 Vaccine) 0.5 ml IM .ONCE ONE Stop: 11/29/17 10:01 Last Admin: 11/29/17 09:43 Dose: 0.5 ml - Labs Labs: 11/29/17 07:32 11/27/17 04:45 PT 12.3 SECONDS (9.7-12.2) H 11/26/17 04:10 INR 1.1 11/26/17 04:10 APTT 30 SECONDS (21-34) 11/26/17 04:10
[2017-11-29] MEDS ORDERED: Pneumococcal 23-Valent Vaccine IM ONE (10:00)
[2017-11-29 11:13] LABS: ALB/GLOB RATIO 1.1 (1.0-2.1); ALT/SGPT 33 U/L (9-52); AST/SGOT 26 U/L (14-36); BLOOD UREA NITROGEN 9 mg/dL (7-17); CALCIUM 9.4 mg/dl (8.6-10.4); GFR AFRICAN-AMERICAN > 60; GFR NON-AFRICAN AMERICAN > 60
--- NOTE | 2017-11-29 11:57 | MRI ---
PROCEDURE: MRI of the maxillofacial skeleton dated 11/28/2017. COMPARISON: Comparison made with prior CT scan of the sinuses dated 11/27/2017. TECHNIQUE: Multiplanar, multisequence MR images of the maxillofacial skeleton obtained without intravenous contrast enhancement. . Note that the examination is limited by motion artifact. FINDINGS: HEMORRHAGE: The current study re- demonstrates mucosal thickening with fluid levels in both maxillary antra left larger than right. In addition, there is near complete opacification of the ethmoid, frontal and sphenoid sinuses. The and sphenoid sinuses. . No obvious bony destructive changes or breakthrough into the adjacent orbits. There are intra or extraconal masses or collections. The extraocular musculature unremarkable. Optic nerves normal in configuration and course. Globes intact and lenses appropriately located. Note is made again of an elliptical shaped lytic lesion in the frontal bone/orbital roof that exhibits some predominately increased CSF like signal intensity with a central area of dark T2 signal. 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 . . If there is history of malignancy, consider followup bone scan. . Note is made of enlarged expanded undercut CSF filled sella turcica. The pituitary gland is not visualized. Findings could represent a partially empty sella with expansile changes secondary to an arachnoid cyst. The possibility of a cystic pituitary lesion cannot be completely excluded. Follow-up pre and post-contrast MRI of the brain and pituitary gland suggested for further evaluation of these findings as well as the aforementioned lytic lesion in the right frontal calvarium. Partial opacification both mastoid air complexes. IMPRESSION: Pansinusitis as described. No evidence of extension of inflammatory changes into the orbits seen on this exam. There is an elliptical shaped lytic lesion containing for nominally CSF like signal with a central area of somewhat darker T2 signal. 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 Followup pre and post-contrast MRI of the brain could be performed for further evaluation if necessary. If there is a history of primary carcinoma in this patient, a metastatic lesion must be excluded and therefore bone scan followup could be performed. Enlarged expanded undercut CSF filled sella turcica. The pituitary gland is not visualized. Findings could represent a partially empty sella with expansile changes secondary to an arachnoid cyst. The possibility of a cystic pituitary lesion cannot be completely excluded. Follow-up pre and post-contrast MRI of the brain and pituitary gland suggested for further evaluation of these findings as well as the aforementioned lytic lesion in the right frontal calvarium
[2017-11-30] MEDS: Piperacillin/Tazobact 3.375 GM in Sodium Chloride 100 ML IVPB SCH ×3 (00:39→16:55)
--- NOTE | 2017-11-30 01:06 | PN ---
DATE: 11/29/2017 HISTORY OF PRESENT ILLNESS: The patient is seen and examined at bedside. The patient is still complaining of severe headache. Denies any other new complaints. PHYSICAL EXAMINATION: GENERAL: Elderly female, lying in bed, in no acute distress. VITAL SIGNS: Blood pressure 139/73, pulse 69, respirations 20, temperature 98.2 degrees Fahrenheit, O2 sats 99% on room air. HEENT: Pupils equal, round, and reacting to light and accommodation. Extraocular muscles are intact. No icterus. No pallor. No oral thrush. No pharyngeal congestion. NECK: Supple. No JVD. LUNGS: Bilateral vesicular breath sounds. No wheezing. No rhonchi. CVS: S1 and S2 present. Regular. ABDOMEN: Soft. Nontender. Bowel sounds are present. No guarding. No rigidity. No rebound tenderness noted. SISAL OPERATOR: Alert, awake, oriented x2. No focal deficits noted. EXTREMITIES: No edema. MEDICATIONS: Include Tylenol as needed, amlodipine 2.5 mg daily, Lovenox 30 mg subcu, Robitussin DM, ibuprofen as needed, Ativan one dose, Zosyn 3.375 gm IV q. 8 hours. LABORATORY DATA: Labs from this morning, WBC 11.9, hemoglobin 12, hematocrit 36.2, and platelets 182,000. Sodium 140, potassium 3.4, chloride 101, bicarbonates 26, BUN 9, creatinine 0.8, glucose 156, and calcium 9.4. Other LFTs within normal limits. Blood cultures positive for Streptococcus pneumoniae. Repeat blood cultures negative. ASSESSMENT AND PLAN: Elderly female with history of dementia, admitted for hypertension, pansinusitis, persistent headache possibly from sinusitis, Gram-positive sepsis with Streptococcus pneumoniae. Continue with Zosyn. Continue with other current therapy. ENT and ID input appreciated. We will check echocardiogram. We will follow up with ID regarding length of antibiotics and social work administrator for discharge planning. Alexandra Piper MD
[2017-11-30] MEDS: Sodium Chloride 0.9% 1,000 ML IV SCH (06:28)
[2017-11-30] MEDS: Enoxaparin 30 mg Syringe SC SCH ×2 (09:10→21:05)
[2017-11-30] MEDS ORDERED: Potassium Chloride 20 mEq ER Tab PO ONE (10:05)
--- NOTE | 2017-11-30 10:07 | CP.PCM.PN ---
Subjective - Date & Time of Evaluation Date of Evaluation: 11/30/17 Time of Evaluation: 10:00 - Subjective Subjective: Progress note dictated #[id number] Objective - Vital Signs/Intake and Output Vital Signs (last 24 hours): Temp Pulse Resp BP Pulse Ox 98.7 F 88 18 145/83 97 11/30/17 08:00 11/30/17 08:00 11/30/17 08:00 11/30/17 08:00 11/30/17 08:00 Intake and Output: 11/30/17 11/30/17 06:59 18:59 Intake Total 1090 Balance 1090 - Medications Medications: Current Medications Acetaminophen (Tylenol 325mg Tab) 650 mg PO Q6 PRN PRN Reason: Headache Last Admin: 11/30/17 06:27 Dose: 650 mg Amlodipine Besylate (Norvasc) 2.5 mg PO DAILY [facility] Last Admin: 11/30/17 09:11 Dose: 2.5 mg Enoxaparin Sodium (Lovenox) 30 mg SC 1000,2200 [facility] Last Admin: 11/30/17 09:10 Dose: 30 mg Guaifenesin/Dextromethorphan (Robitussin Dm) 10 ml PO Q6H PRN PRN Reason: Cough and congestion Last Admin: 11/28/17 12:47 Dose: 10 ml Piperacillin Sod/Tazobactam (Sod 3.375 gm/ Sodium Chloride) 100 mls @ 200 mls/ hr IVPB Q8H [facility] Last Admin: 11/30/17 07:03 Dose: 200 mls/hr Ibuprofen (Motrin Tab) 400 mg PO Q8 PRN PRN Reason: Pain, moderate (4-7) Last Admin: 11/29/17 10:22 Dose: 400 mg Lorazepam (Ativan) 0.5 mg IVP ONCE PRN PRN Reason: Anxiety Last Admin: 11/28/17 14:25 Dose: 0.5 mg Memantine (Namenda) 5 mg PO BID [facility] Last Admin: 11/30/17 09:11 Dose: 5 mg Potassium Chloride (K-Dur 20 Meq Er Tab) 40 meq PO ONCE ONE Stop: 11/30/17 10:06 - Labs Labs: 11/29/17 07:32 11/29/17 10:53 PT 12.3 SECONDS (9.7-12.2) H 11/26/17 04:10 INR 1.1 11/26/17 04:10 APTT 30 SECONDS (21-34) 11/26/17 04:10
[2017-11-30] MEDS ORDERED: Potassium Chloride 20 mEq ER Tab PO SCH (10:15)
[2017-11-30 11:15] LABS: BLOOD UREA NITROGEN 9 mg/dL (7-17); CALCIUM 9.3 mg/dl (8.6-10.4); GFR AFRICAN-AMERICAN > 60; GFR NON-AFRICAN AMERICAN > 60
[2017-11-30 16:14] VITALS: RESP 20
--- NOTE | 2017-11-30 17:24 | CARD ---
APPROVED REPORT EXAM: Two-dimensional and M-mode echocardiogram with Doppler and color Doppler. Other Information Quality : [employer] : INDICATION R/O VEGITATION 2D DIMENSIONS IVSd1.4 (0.7-1.1cm)LVDd3.6 (3.9-5.9cm) PWd1.1 (0.7-1.1cm)LVDs2.2 (2.5-4.0cm) FS (%) 39.1 %LVEF (%)70.4 (>50%) M-Mode DIMENSIONS Left Atrium (MM)3.15 (2.5-4.0cm)Aortic Root3.25 (2.2-3.7cm) Aortic Cusp Exc.1.92 (1.5-2.0cm) Mitral Valve MV E Jqelxirg93.0cm/sMV A Yrbvorjg22.9cm/sE/A ratio0.5 TDI E/Lateral E'0.0E/Medial E'0.0 LEFT VENTRICLE The left ventricle is normal size. There is mild concentric left ventricular hypertrophy. Left ventricle systolic function is normal. The Ejection Fraction is >70%. There is normal LV segmental wall motion. Tissue Doppler imaging reveals abnormal left ventricular diastolic dysfunction. RIGHT VENTRICLE The right ventricle is normal size. There is normal right ventricular wall thickness. The right ventricular systolic function is normal. ATRIA The left atrium size is normal. The right atrium size is normal. The interatrial septum is intact with no evidence for an atrial septal defect. AORTIC VALVE The aortic valve is normal in structure. No aortic regurgitation is present. There is no aortic valvular stenosis. There is no aortic valvular vegetation. MITRAL VALVE The mitral valve is normal in structure. There is no evidence of mitral valve prolapse. There is no mitral valve stenosis. There is no mitral valve regurgitation noted. TRICUSPID VALVE The tricuspid valve is normal in structure. There is no tricuspid regurgitation. There is no pulmonary hypertension. PULMONIC VALVE The pulmonary valve is normal in structure. There is mild pulmonic valvular regurgitation. GREAT VESSELS The aortic root is normal in size. PERICARDIAL EFFUSION There is no significant pericardial effusion. <Conclusion> Left ventricle systolic function is normal. The Ejection Fraction is >70%. Hypertensive heart disease. Diastolic dysfunction. No aortic regurgitation is present. There is no mitral valve regurgitation noted. There is no tricuspid regurgitation. There is no pulmonary hypertension. There is mild pulmonic valvular regurgitation.
--- NOTE | 2017-11-30 17:59 | CP.PCM.PN ---
Subjective - Date & Time of Evaluation Date of Evaluation: 11/30/17 Time of Evaluation: 06:00 - Subjective Subjective: no fever c/o headache aler NAD await MRI reports cont IV rx may need neurosurgical eval Objective - Vital Signs/Intake and Output Vital Signs (last 24 hours): Temp Pulse Resp BP Pulse Ox 99.3 F 88 20 141/66 98 11/30/17 15:13 11/30/17 15:13 11/30/17 15:13 11/30/17 15:13 11/30/17 15:13 Intake and Output: 11/30/17 11/30/17 06:59 18:59 Intake Total 1090 Balance 1090 - Medications Medications: Current Medications Acetaminophen (Tylenol 325mg Tab) 650 mg PO Q6 PRN PRN Reason: Headache Last Admin: 11/30/17 06:27 Dose: 650 mg Amlodipine Besylate (Norvasc) 2.5 mg PO DAILY [facility] Last Admin: 11/30/17 09:11 Dose: 2.5 mg Enoxaparin Sodium (Lovenox) 30 mg SC 1000,2200 [facility] Last Admin: 11/30/17 09:10 Dose: 30 mg Guaifenesin/Dextromethorphan (Robitussin Dm) 10 ml PO Q6H PRN PRN Reason: Cough and congestion Last Admin: 11/28/17 12:47 Dose: 10 ml Piperacillin Sod/Tazobactam (Sod 3.375 gm/ Sodium Chloride) 100 mls @ 200 mls/ hr IVPB Q8H [facility] Last Admin: 11/30/17 16:55 Dose: 200 mls/hr Ibuprofen (Motrin Tab) 400 mg PO Q8 PRN PRN Reason: Pain, moderate (4-7) Last Admin: 11/30/17 16:53 Dose: 400 mg Lorazepam (Ativan) 0.5 mg IVP ONCE PRN PRN Reason: Anxiety Last Admin: 11/28/17 14:25 Dose: 0.5 mg Memantine (Namenda) 5 mg PO BID [facility] Last Admin: 11/30/17 17:42 Dose: 5 mg - Labs Labs: 11/29/17 07:32 11/30/17 10:52 PT 12.3 SECONDS (9.7-12.2) H 11/26/17 04:10 INR 1.1 11/26/17 04:10 APTT 30 SECONDS (21-34) 11/26/17 04:10 - Constitutional Appears: Non-toxic, Confused, Chronically Ill - Head Exam Head Exam: NORMOCEPHALIC - Eye Exam Eye Exam: PERRL. absent: Scleral icterus - ENT Exam ENT Exam: Mucous Membranes Dry - Neck Exam Neck Exam: absent: Lymphadenopathy - Respiratory Exam Respiratory Exam: Decreased Breath Sounds - Cardiovascular Exam Cardiovascular Exam: REGULAR RHYTHM - GI/Abdominal Exam GI & Abdominal Exam: Distended, Soft - Rectal Exam Rectal Exam: Deferred - Exam Exam: NORMAL INSPECTION - Extremities Exam Extremities Exam: absent: Pedal Edema - Back Exam Back Exam: absent: CVA tenderness (L), CVA tenderness (R) - Neurological Exam Neurological Exam: Alert, Altered, Awake Assessment and Plan (1) Alzheimer disease Status: Acute (2) UTI (urinary tract infection) Status: Acute
--- NOTE | 2017-11-30 22:39 | PN ---
DATE: 11/30/2017 SUBJECTIVE: The patient was seen and examined at bedside. The patient is feeling slightly better, but still complaining of persistent headache. Denies any other complaints. All other systems reviewed and was found to be negative. PHYSICAL EXAMINATION: GENERAL: Elderly female, lying in bed, in no acute distress. VITAL SIGNS: Blood pressure 141/66, pulse 88, respirations 20, temperature 99.3 degrees Fahrenheit, O2 saturation is 98% on room air. HEENT: Pupils are equal, round and reacting to light and accommodation. Extraocular muscles are intact. No icterus. No pallor. No oral thrush. No pharyngeal congestion. NECK: Supple. No JVD. LUNGS: Bilateral vesicular breath sounds. No wheezing. No rhonchi. CVS: S1 and S2 present. Regular. ABDOMEN: Soft. Nontender. Bowel sounds are present. No guarding. No rigidity. No rebound tenderness noted. ASSOCIATE PROFESSOR OF COMMUNICATION: Alert, awake, oriented x2. No focal deficits noted. EXTREMITIES: No edema. MEDICATIONS: Include Tylenol as needed, Norvasc 2.5 mg daily, Lovenox 30 mg subcu q.12 hours, Robitussin as needed, Motrin for severe pain, Namenda 5 mg p.o. b.i.d. LABORATORY DATA: Labs from today, sodium 137, potassium 3.4, chloride 98, bicarb 24, BUN 9, creatinine 0.9, glucose 79, and calcium 9.3. ASSESSMENT AND PLAN: Elderly female with history of Alzheimer's dementia, admitted for pansinusitis, headache, Streptococcus pneumoniae bacteremia, hypokalemia, found to be having elevated blood pressures. Blood pressures are better with amlodipine 2.5 mg daily; on Zosyn 3.375 gm IV q. 8 hours. Continue with Namenda. Continue with deep venous thrombosis and gastrointestinal prophylaxis. Infectious Disease input appreciated. Recommending 14 days of IV antibiotics. We will discuss with case management regarding subacute rehab placement for IV antibiotic therapy. Echocardiogram done yesterday shows that her ejection fraction is 70%, hypertensive heart disease, diastolic dysfunction; otherwise, negative for any vegetation. We will follow up with criminal justice social worker for discharge planning, follow up with ENT. Continue with other current medications. Alexandra Piper MD [facility] # [id number]
[2017-12-01] MEDS: Piperacillin/Tazobact 3.375 GM in Sodium Chloride 100 ML IVPB SCH ×3 (00:07→16:46)
--- NOTE | 2017-12-01 10:17 | CP.PCM.PN ---
Subjective - Date & Time of Evaluation Date of Evaluation: 12/01/17 Time of Evaluation: 10:00 - Subjective Subjective: Discharge summary dictated #[id number] Objective - Vital Signs/Intake and Output Vital Signs (last 24 hours): Temp Pulse Resp BP Pulse Ox 99.0 F 79 20 170/100 H 99 12/01/17 08:57 12/01/17 08:57 12/01/17 08:57 12/01/17 08:57 12/01/17 08:57 Intake and Output: 12/01/17 12/01/17 06:59 18:59 Intake Total 1040 Balance 1040 - Medications Medications: Current Medications Acetaminophen (Tylenol 325mg Tab) 650 mg PO Q6 PRN PRN Reason: Headache Last Admin: 11/30/17 06:27 Dose: 650 mg Amlodipine Besylate (Norvasc) 2.5 mg PO DAILY [facility] Last Admin: 11/30/17 09:11 Dose: 2.5 mg Enoxaparin Sodium (Lovenox) 30 mg SC 1000,2200 [facility] Last Admin: 11/30/17 21:05 Dose: 30 mg Guaifenesin/Dextromethorphan (Robitussin Dm) 10 ml PO Q6H PRN PRN Reason: Cough and congestion Last Admin: 11/28/17 12:47 Dose: 10 ml Piperacillin Sod/Tazobactam (Sod 3.375 gm/ Sodium Chloride) 100 mls @ 200 mls/ hr IVPB Q8H [facility] Last Admin: 12/01/17 08:41 Dose: 200 mls/hr Ibuprofen (Motrin Tab) 400 mg PO Q8 PRN PRN Reason: Pain, moderate (4-7) Last Admin: 11/30/17 16:53 Dose: 400 mg Lorazepam (Ativan) 0.5 mg IVP ONCE PRN PRN Reason: Anxiety Last Admin: 11/28/17 14:25 Dose: 0.5 mg Memantine (Namenda) 5 mg PO BID [facility] Last Admin: 11/30/17 17:42 Dose: 5 mg - Labs Labs: 11/29/17 07:32 11/30/17 10:52 PT 12.3 SECONDS (9.7-12.2) H 11/26/17 04:10 INR 1.1 11/26/17 04:10 APTT 30 SECONDS (21-34) 11/26/17 04:10
[2017-12-01] MEDS: Enoxaparin 30 mg Syringe SC SCH (10:19)
--- NOTE | 2017-12-01 17:54 | CP.PCM.PN ---
Subjective - Date & Time of Evaluation Date of Evaluation: 12/01/17 Time of Evaluation: 07:00 - Subjective Subjective: growing strep in blood source appears to be sinuses if headache continues would do LP will switch to rocephin Objective - Vital Signs/Intake and Output Vital Signs (last 24 hours): Temp Pulse Resp BP Pulse Ox 99.0 F 79 20 170/100 H 99 12/01/17 08:57 12/01/17 08:57 12/01/17 08:57 12/01/17 08:57 12/01/17 08:57 Intake and Output: 12/01/17 12/01/17 06:59 18:59 Intake Total 1040 Balance 1040 - Medications Medications: Current Medications Acetaminophen (Tylenol 325mg Tab) 650 mg PO Q6 PRN PRN Reason: Headache Last Admin: 11/30/17 06:27 Dose: 650 mg Amlodipine Besylate (Norvasc) 5 mg PO DAILY [facility] Enoxaparin Sodium (Lovenox) 30 mg SC 1000,2200 [facility] Last Admin: 12/01/17 10:19 Dose: 30 mg Guaifenesin/Dextromethorphan (Robitussin Dm) 10 ml PO Q6H PRN PRN Reason: Cough and congestion Last Admin: 11/28/17 12:47 Dose: 10 ml Piperacillin Sod/Tazobactam (Sod 3.375 gm/ Sodium Chloride) 100 mls @ 200 mls/ hr IVPB Q8H [facility] Last Admin: 12/01/17 16:46 Dose: 200 mls/hr Ibuprofen (Motrin Tab) 400 mg PO Q8 PRN PRN Reason: Pain, moderate (4-7) Last Admin: 11/30/17 16:53 Dose: 400 mg Lorazepam (Ativan) 0.5 mg IVP ONCE PRN PRN Reason: Anxiety Last Admin: 11/28/17 14:25 Dose: 0.5 mg Memantine (Namenda) 5 mg PO BID [facility] Last Admin: 12/01/17 10:19 Dose: 5 mg - Labs Labs: 11/29/17 07:32 11/30/17 10:52 PT 12.3 SECONDS (9.7-12.2) H 11/26/17 04:10 INR 1.1 11/26/17 04:10 APTT 30 SECONDS (21-34) 11/26/17 04:10 - Constitutional Appears: Non-toxic, Chronically Ill - Head Exam Head Exam: NORMOCEPHALIC - Eye Exam Eye Exam: PERRL - ENT Exam ENT Exam: Mucous Membranes Dry. absent: TM's Normal Bilaterally - Neck Exam Neck Exam: absent: Lymphadenopathy - Respiratory Exam Respiratory Exam: Decreased Breath Sounds - Cardiovascular Exam Cardiovascular Exam: REGULAR RHYTHM - GI/Abdominal Exam GI & Abdominal Exam: Distended, Soft - Rectal Exam Rectal Exam: Deferred - Exam Exam: NORMAL INSPECTION - Extremities Exam Extremities Exam: absent: Pedal Edema - Back Exam Back Exam: absent: CVA tenderness (L), CVA tenderness (R) Assessment and Plan (1) Alzheimer disease Status: Acute (2) UTI (urinary tract infection) Status: Acute - Assessment and Plan (Free Text) Assessment: cont iv rx for 14 days
[2017-12-01 18:11] VITALS: BP 154/75; PULSE 77; TEMP 97.4; O2SAT 96
--- NOTE | 2017-12-02 12:13 | DS ---
Possible transfer to subacute rehab [facility] on 12/01/2017. DISCHARGE DIAGNOSES: Alzheimer's dementia, pansinusitis, hypertension, headache, Strep pneumonia, bacteremia, status post hypokalemia, elevated WBC count improving. HISTORY OF PRESENT ILLNESS: Ms. Carlson is a 77-year-old female with past medical history of Alzheimer's dementia, on Namenda, following up with doctors from [place], came into the ED with history of cold, cough, headache, feeling dizzy, feverish for the past few days prior to admission. In the ED, she was ruled out for flu, and her white count was elevated at 21,000, and the patient is being admitted for further examination, and today, the patient is feeling much better. Her headache is better. Denies any dizziness. Denies any nausea, vomiting, abdominal pain, diarrhea, or constipation. Denies any urinary complaints. Denies any leg pains or leg cramps. Denies any other neurologic symptoms. All other systems reviewed and were found to be negative. PHYSICAL EXAMINATION: GENERAL: Elderly female, lying in bed, in no acute distress. VITAL SIGNS: Blood pressure 144/84, pulse 71, respirations 20, temperature 98.5 degree Fahrenheit, O2 saturation is 96% on room air. HEENT: Pupils equal, round, and reactive to light and accommodation. Extraocular muscles intact. No icterus, no pallor. No oral thrush. No pharyngeal congestion. NECK: Supple. No JVD. No thyromegaly. CHEST: Moving equally bilaterally on auscultation. LUNGS: Bilateral clear breath sounds. No wheezing, no rhonchi. CVS: S1, S2 present. Regular. ABDOMEN: Soft, nontender. Bowel sounds present. No guarding, no rigidity. No rebound tenderness noted. SAXOPHONE PLAYER: Alert, awake, oriented x2. No focal deficits noted. EXTREMITIES: No edema, palpable peripheral pulses. LABS: From 11/30, sodium 137, potassium 3.4, chloride 98, bicarb 24, BUN 9, creatinine 0.9, glucose 122, calcium 9.3, C-reactive protein more than 15. WBC 11.9, hematocrit 36.2, hemoglobin 12, platelets 182. UA specific gravity 1.010, pH 7, WBC 21, leukocyte esterase 1+. Influenza negative. Hepatitis B and C negative. HIV negative. Hemoglobin A1c is 6.1. TSH 1.48. Lipid profile within normal limits. Blood cultures, strep pneumoniae from 11/26. Repeat blood cultures are negative. Urine culture negative. CT of the head shows pansinusitis, CT of the sinus is consistent with pansinusitis. Orbit MRI did not show any involvement of the orbital wall. HOSPITAL COURSE: The patient was admitted to the hospital for her headache. The patient was started on IV antibiotics. Her symptoms improved. The patient was found to be having positive blood cultures. Repeat cultures were negative. Echo was negative. The patient was evaluated by ENT and ID. ENT recommended antibiotics because the blood cultures were positive. Dr. Joe recommended 14 days of IV antibiotics as the patient is otherwise hemodynamically stable and requiring long-term IV antibiotics. The patient is being transferred to subacute rehab to [facility] for completion of IV antibiotics. The patient is advised to follow up with primary care, discussed with the patient's son at length and explained the patient's clinical condition and explained the need for outpatient repeat MRI of the head with and without contrast for followup of pansinusitis. Advised the patient to follow up with ENT. As patient is otherwise hemodynamically stable, advised the patient to follow up as outpatient. DISCHARGE MEDICATIONS: Include Zosyn 3.375 gm IV q.8 hours for a total of 14 days, Namenda 5 mg b.i.d., amlodipine 5 mg daily, Tylenol as needed. CONDITION UPON DISCHARGE: The patient is alert, awake, oriented x2. Hemodynamically stable at the time of discharge. DIET: Low sodium, low cholesterol, heart healthy diet. ACTIVITY: As tolerated. Alexandra Piper MD cc:
--- NOTE | 2017-12-02 13:37 | US ---
Date of procedure: 12/02/2017 Procedure: Ultrasound guidance for vascular access HISTORY: Infection requiring long-term IV antibiotics TECHNIQUE: Following informed consent and procedure time-out, the patient placed supine on the interventional table and the right arm prepped and draped in the usual sterile fashion. Ultrasound showed a patent and compressible basilic vein. After the skin was anesthetized with lidocaine, the basilic vein was accessed with micro micropuncture technique using ultrasound guidance. An image documenting ultrasound guidance for vascular access was permanently saved. IMPRESSION: Ultrasound guidance for vascular access for placement of PICC.
--- NOTE | 2017-12-02 13:39 | RAD ---
PROCEDURE: Date of procedure: 12/01/2017 Procedure: 1. Placement of a right arm PICC with ultrasound and fluoroscopic guidance, CPT 00006 2. PICC tip confirmation with spot radiograph and is in the superior vena cava Medications: 1 percent lidocaine Total Fluoro time: 4 seconds Radiation: 2 mGy EBL: 2 cc HISTORY: Infection requiring long-term IV antibiotics TECHNIQUE: Following informed consent and procedure time-out, the patient was placed supine on the interventional table and the right arm prepped and draped in the usual sterile fashion. Ultrasound showed a patent and compressible right basilic vein. After the skin was anesthetized with lidocaine, the basilic vein was accessed with micro micropuncture technique using ultrasound guidance. A guidewire was then advanced under fluoroscopic guidance into the superior vena cava. An image documenting ultrasound guidance for vascular access was permanently saved. The length of the single-lumen 4 Dutch PICC was trimmed to 35 centimeters and advanced through a peel-away sheath. The PICC was position with tip of PICC confirm a spot radiograph the superior vena cava. The PICC was secured to the patient's skin. The PICC was flushed. A biopatch and sterile dressing was applied. IMPRESSION: Placement of a single-lumen 4 Dutch PICC trimmed to 35 centimeters via right basilic vein. The tip of the PICC is confirmed with spot radiograph and is in the superior vena cava.
== END 2017-12-01 18:47 | DRG 872 ==
LOC: C.ER 01:54 → C.9E 10:50 → C.6T 11-27 03:03
PROVIDERS: ADMIT Internal Medicine; ATTEND Internal Medicine
PROC: 02HV33Z Insertion of Infusion Device into Superior Vena Cava, Percutaneous Approach (ICD-10-PCS; principal; 2017-12-01)
PROC: B548ZZA Ultrasonography of Superior Vena Cava, Guidance (ICD-10-PCS; 2017-12-01)
DX: A40.3 Sepsis due to Streptococcus pneumoniae (principal); G30.9 Alzheimer's disease, unspecified; I11.9 Hypertensive heart disease without heart failure; F02.80 Dementia in other diseases classified elsewhere, unspecified severity, without behavioral disturbance, psychotic disturbance, mood disturbance, and anxiety; E87.6 Hypokalemia; N39.0 Urinary tract infection, site not specified; J01.40 Acute pansinusitis, unspecified; J34.2 Deviated nasal septum; Z68.21 Body mass index [BMI] 21.0-21.9, adult

== ENCOUNTER 2019-01-10 12:46 | Emergency (ER) | payer MEDICARE, MEDICAID ==
[2019-01-10 13:13] VITALS: BP 169/80; PULSE 69; RESP 18; TEMP 98.5; O2SAT 97
--- NOTE | 2019-01-10 13:33 | C.PDOC ---
History Of Present Illness Patient is a 78 year old female with a history of Alzheimer, who presents with complaints of a left wrist cyst. She has had this cyst for approximately 5 months. She denies having pain, drainage, numbness, tingling, or difficulty with moving the wrist, hand, and fingers. She has no additional complaints. PMHx: Alzheimers Medications: takes a 5mg tab of medication, but doesn't remember name Allergies: NKDA Sochx: denies tobacco, alcohol, and drug use. <Cassy Sykes - Last Filed: 01/10/19 13:52> <[place] - Last Filed: 01/10/19 13:40> <Cassy Sykes - Last Filed: 01/10/19 13:52> Time Seen by Provider: 01/10/19 13:17 Chief Complaint (Nursing): Abnormal Skin Integrity Past Medical History Vital Signs: Last Vital Signs Temp 98.5 F 01/10/19 13:11 Pulse 69 01/10/19 13:11 Resp 18 01/10/19 13:11 BP 169/80 H 01/10/19 13:11 Pulse Ox 97 01/10/19 13:38 - [facility] Procedures INSERTION OF INFUSION DEV INTO SUP VENA CAVA, PERC APPROACH (11/26/17) ULTRASONOGRAPHY OF SUPERIOR VENA CAVA, GUIDANCE (11/26/17) <[place] - Last Filed: 01/10/19 13:40> Vital Signs: Last Vital Signs Temp 98.5 F 01/10/19 13:11 Pulse 69 01/10/19 13:11 Resp 18 01/10/19 13:11 BP 169/80 H 01/10/19 13:11 Pulse Ox 97 01/10/19 13:11 - Medical History PMH: Alzheimer's Disease Denies: Chronic Kidney Disease - [facility] Procedures INSERTION OF INFUSION DEV INTO SUP VENA CAVA, PERC APPROACH (11/26/17) ULTRASONOGRAPHY OF SUPERIOR VENA CAVA, GUIDANCE (11/26/17) Family History: States: Unknown Family Hx - Social History Hx Alcohol Use: No Hx Substance Use: No - Immunization History Hx Tetanus Toxoid Vaccination: No Hx Influenza Vaccination: No Hx Pneumococcal Vaccination: No <Cassy Sykes - Last Filed: 01/10/19 13:52> Review Of Systems Constitutional: Negative for: Fever, Chills Musculoskeletal: Negative for: Arm Pain, Hand Pain Skin: Positive for: Lesions (Left wrist cyst) Neurological: Negative for: Weakness <Cassy Sykes - Last Filed: 01/10/19 13:52> Physical Exam - Physical Exam Appears: Non-toxic, No Acute Distress Skin: Warm, Dry, Other (cyst on left wrist, nontender, mild erythema) Extremity: Bilateral: Atraumatic, Normal Color And Temperature Pulses: Left Radial: Normal, Right Radial: Normal <Cassy Sykes - Last Filed: 01/10/19 13:52> ED Course And Treatment O2 Sat by Pulse Oximetry: 97 <Cassy Sykes - Last Filed: 01/10/19 13:52> Medical Decision Making Medical Decision Making: Patient has a left wrist ganglion cyst. Please follow up in [facility] for continued care. <Cassy Sykes - Last Filed: 01/10/19 13:52> Disposition <[place] - Last Filed: 01/10/19 13:40> - Disposition Disposition Time: 13:36 <Cassy Sykes - Last Filed: 01/10/19 13:52> - Disposition Referrals: [facility] [Outside] Disposition: HOME/ ROUTINE Condition: STABLE Additional Instructions: Please follow up in [facility] for continued care. Instructions: Ganglion Cyst (DC) Forms: [employer] (Azeri) - Clinical Impression Clinical Impression: Ganglion cyst of wrist
== END 2019-01-10 13:58 | disposition home or self-care (01) ==
LOC: C.ER 12:46
DX: M67.432 Ganglion, left wrist (principal)